=== PATIENT | female | born 1980 | race Caucasian/White ===

== ENCOUNTER 2019-06-08 02:24 | Emergency (ER) | payer SELFPAY ==
[2019-06-08 03:11] LABS: ABSOLUTE BASOPHILS # (AUTO) 0.1 10^3/uL (0.0-0.2); ABSOLUTE EOSINOPHILS # (AUTO) 0.1 10^3/uL (0.0-0.6); ABSOLUTE MONOCYTES (AUTO) 0.7 10^3/uL (0.1-1.4); ABSOLUTE NEUT (AUTO) 8.5 10^3/uL (1.7-8.2); BASOPHILS % (AUTO) 0.5 % (0-2); EOSINOPHILS % (AUTO) 0.8 % (0-6); HEMATOCRIT 39.8 % (36.0-47.0); HEMOGLOBIN 13.3 g/dL (12.0-15.5); LYMPHOCYTES % (AUTO) 17.7 % (13-45); MEAN CORPUSCULAR HEMOGLOBIN 29.6 pg (27.0-33.4); MEAN CORPUSCULAR HGB CONC 33.5 g/dL (32.0-36.0); MEAN CORPUSCULAR VOLUME 88 fl (80-97); MONOCYTES % (AUTO) 6.4 % (3-13); PLATELET COUNT 301 10^3/uL (150-450); RED BLOOD COUNT 4.51 10^6/uL (3.72-5.28); RED CELL DISTRIBUTION WIDTH 14.9 % (11.5-14.0); SEGMENTED NEUTROPHILS % (AUTO) 74.6 % (42-78); TOTAL CELLS COUNTED % (AUTO) 100 %; WHITE BLOOD COUNT 11.4 10^3/uL (4.0-10.5)
[2019-06-08 03:13] LABS: APPEARANCE,URINE SLIGHTLY-CLOUDY; BILIRUBIN,URINE NEGATIVE (NEGATIVE); COLOR,URINE YELLOW; GLUCOSE, URINE NEGATIVE (NEGATIVE); KETONES,URINE 80 mg/dL (NEGATIVE); LEUKOCYTE ESTERASE,URINE NEGATIVE (NEGATIVE); NITRITE,URINE NEGATIVE (NEGATIVE); PROTEIN,URINE NEGATIVE (NEGATIVE); URINE SPECIFIC GRAVITY 1.013; UROBILINOGEN,URINE NEGATIVE mg/dL (<2.0)
[2019-06-08 03:27] LABS: ALBUMIN 4.1 g/dL (3.5-5.0); ALKALINE PHOSPHATASE 54 U/L (38-126); ANION GAP 9 (5-19); ASPARTATE AMINO TRANSFERASE 23 U/L (14-36); BLOOD UREA NITROGEN 8 mg/dL (7-20); CALCIUM 9.6 mg/dL (8.4-10.2); CARBON DIOXIDE 27 mmol/L (22-30); CHLORIDE 102 mmol/L (98-107); GLUCOSE 107 mg/dL (75-110); POTASSIUM 4.1 mmol/L (3.6-5.0); TOTAL PROTEIN 7.6 g/dL (6.3-8.2)
--- NOTE | 2019-06-08 05:58 | ER Document Report ---
ED General - General Chief Complaint: Abdominal Pain Stated Complaint: UPPER ABDOMINAL PAIN Time Seen by Provider: 06/08/19 05:57 Primary Care Provider: MARYANA GALICIA MD [Primary Care Provider] - Follow up as needed Mode of Arrival: Ambulatory Information source: Patient Notes: Patient is a 38-year-old female presenting to the emergency department chief complaint of abdominal pain. Patient states that the pain is epigastric in location and achy and burning in nature. Patient states it started about 2 PM on Friday and then has been unrelenting until 1 AM she decided she could not tolerate it anymore and is here for evaluation and treatment. Patient denies t ravel history trauma history sick contacts bad food exposure. Patient has no prior medical history of acid reflux or gastrointestinal issues. TRAVEL OUTSIDE OF THE [place] IN LAST 30 DAYS: No - HPI Onset: Last week Onset/Duration: Gradual, Persistent Quality of pain: Achy, Burning Severity: Moderate Pain Level: 3 Associated symptoms: None Exacerbated by: Food Relieved by: Denies Similar symptoms previously: No Recently seen / treated by doctor: No - Related Data Allergies/Adverse Reactions: No Known Allergies Allergy (Unverified 06/08/19 02:38) Past Medical History - General Information source: Patient, Relative Last Menstrual Period: Irregular periods secondary to PCOS - Social History Smoking Status: Never Smoker Frequency of alcohol use: None Drug Abuse: None Lives with: Spouse/Significant other Family History: Reviewed & Not Pertinent Patient has suicidal ideation: No Patient has homicidal ideation: No - Medical History Medical History: Negative GI Medical History: Reports: Hx Gastroesophageal Reflux Disease Surgical Hx: Negative Review of Systems - Review of Systems Notes: REVIEW OF SYSTEMS: CONSTITUTIONAL : Denies fever, chills, or sweats. Denies recent illness. EENT: Denies eye, ear, throat, or mouth pain or symptoms. Denies nasal or sinus congestion. CARDIOVASCULAR: Denies chest pain. RESPIRATORY: Denies cough, cold, or chest congestion. Denies shortness of breath, difficulty breathing, or wheezing. GASTROINTESTINAL: Per HPI GENITOURINARY: Denies difficulty urinating, painful urination, burning, frequency, or blood in urine. MUSCULOSKELETAL: Denies neck or back pain or joint pain or swelling. SKIN: Denies rash or skin lesions. HEMATOLOGIC : Denies easy bruising or bleeding. NEUROLOGICAL: Denies altered mental status or loss of consciousness. Denies headache. Denies weakness or paralysis or loss of use of either side. Denies problems with gait or speech. Denies sensory or motor loss. PSYCHIATRIC: Denies suicidal or homicidal ideations 10 Systems are negative unless otherwise specified above Physical Exam - Vital signs Vitals: Temp Pulse Resp BP Pulse Ox 97.5 F 78 17 154/83 H 97 06/08/19 02:32 06/08/19 02:32 06/08/19 02:32 06/08/19 02:32 06/08/19 02:32 - Notes Notes: PHYSICAL EXAMINATION: GENERAL: Well-appearing, well-nourished and in no acute distress. HEAD: Atraumatic, normocephalic. EYES: Pupils equal round and reactive to light, extraocular movements intact, sclera anicteric, conjunctiva are normal. ENT: nares patent, oropharynx clear without exudates. Moist mucous membranes. NECK: Normal range of motion, supple without lymphadenopathy, no appreciable JVD LUNGS: Lungs clear to auscultation bilaterally and equal. No wheezes rales or rhonchi. HEART: Regular rate and rhythm without murmurs ABDOMEN: Morbidly obese, bowel sounds are present, no McBurney point tenderness no Tim sign no rebound no guarding tenderness is in the epigastrium EXTREMITIES: Active full range of motion, no pitting or edema. No cyanosis. 2+ pulses x4 NEUROLOGICAL: No focal neurological deficits. Moves all extremities spontaneously and on command. SKIN: Warm, Dry, and intact. Normal turgor, no rashes or lesions noted. Course - Re-evaluation Re-evalutation: 06/08/19 06:15 Laboratory results have been reviewed there is no significant finding however there is blood in the urine and hCG was not initially evaluated. This will be accomplished at this time patient will be given a GI cocktail and will be reassessed. 06/08/19 07:22 On reevaluation the patient is continuing to rest comfortably in hospital bed she states that the GI cocktail helped for a few minutes. I do not feel that radiologic tests are indicated at this time recommendation is to follow-up with gastroenterology. Patient will be started on pepcid for the next several days and recommend also following up with her primary care provider. 06/08/19 07:28 - Vital Signs Vital signs: Temp Pulse Resp BP Pulse Ox 97.5 F 78 16 171/83 H 100 06/08/19 02:32 06/08/19 02:32 06/08/19 07:00 06/08/19 07:00 06/08/19 07:00 - Laboratory Result Diagrams: 06/08/19 02:35 06/08/19 02:35 Laboratory results interpreted by me: 06/08/19 06/08/19 02:35 02:35 WBC 11.4 H RDW 14.9 H Absolute Neuts (auto) 8.5 H Urine Ketones 80 H Urine Blood MODERATE H Discharge - Discharge Clinical Impression: GERD (gastroesophageal reflux disease) Qualifiers: Esophagitis presence: esophagitis presence not specified Qualified Code(s): K21.9 - Gastro-esophageal reflux disease without esophagitis Condition: Stable Disposition: HOME, SELF-CARE Instructions: Abdominal Pain ([facility]) Additional Instructions: Recommend following up with gastroenterology and your primary care provider. Recommend the brat diet for the next several days. Take medications as prescribed. Prescriptions: Famotidine [Pepcid] 20 mg PO BID #30 tablet Referrals: MARYANA GALICIA MD [Primary Care Provider] - Follow up as needed JACQUELYN REINA MD [ACTIVE STAFF] - Follow up as needed
[2019-06-08] MEDS ORDERED: MAG HYDROX/AL HYDROX/SIMETH SUSP 30 ML UDCUP PO ONE (06:11)
[2019-06-08] MEDS ORDERED: METOCLOPRAMIDE HCL ORAL SOLN 10 MG/10 ML UDCUP PO ONE (06:11)
[2019-06-08] MEDS ORDERED: LIDOCAINE 2% VISCOUS SOLN 15 ML UDCUP PO ONE (06:11)
[2019-06-08 08:12] VITALS: BP 150/85
== END 2019-06-08 08:12 | disposition home or self-care (01) ==
LOC: ER 02:24
DX: K21.9 Gastro-esophageal reflux disease without esophagitis (principal); R10.10 Upper abdominal pain, unspecified
CPT/HCPCS: 99284; 36415; 83690; 85025; 81025; 80053; 81001; J3490

== ENCOUNTER 2019-06-09 06:09 | Observation (INO) | payer SELFPAY ==
[2019-06-09] MEDS ORDERED: NORMAL SALINE 1000 ML 1,000 ML IV ONE (08:30)
--- NOTE | 2019-06-09 08:30 | ER Document Report ---
ED General - General Chief Complaint: Abdominal Pain Stated Complaint: ABDOMINAL PAIN Time Seen by Provider: 06/09/19 08:21 Primary Care Provider: MARYANA GALICIA MD [Primary Care Provider] - Follow up as needed TRAVEL OUTSIDE OF THE [place] IN LAST 30 DAYS: No - HPI Notes: 38-year-old female to the emergency department with complaints of epigastric and right upper quadrant abdominal pain that has been getting worse since Friday. She states that she was seen here and evaluated for the same yesterday. She states she was given a GI cocktail and Pepcid but she continues to do poorly. States that she took Pepcid this morning at 4 AM to try to help her with her pain but it did not. She states that she attempted to eat yesterdaysome bread, but that came back up. She states that she has had nausea and pain ever since. She denies any fevers or chills. She is never had surgery on her abdomen before. She states that the pain initially started after eating hashbrowns on Friday. - Related Data Allergies/Adverse Reactions: No Known Allergies Allergy (Unverified 06/08/19 02:38) Past Medical History - General Information source: Patient - Social History Smoking Status: Never Smoker Chew tobacco use (# tins/day): No Frequency of alcohol use: None Drug Abuse: None Lives with: Family Family History: Reviewed & Not Pertinent Patient has suicidal ideation: No Patient has homicidal ideation: No GI Medical History: Reports: Hx Gastroesophageal Reflux Disease Review of Systems - Review of Systems Constitutional: denies: Chills, Fever EENT: No symptoms reported Cardiovascular: denies: Chest pain, Palpitations, Heart racing, Syncope, Dizziness, Lightheaded Respiratory: denies: Cough, Short of breath Gastrointestinal: Abdominal pain, Nausea, Vomiting. denies: Diarrhea Genitourinary: No symptoms reported Female Genitourinary: No symptoms reported Musculoskeletal: No symptoms reported Skin: No symptoms reported Neurological/Psychological: No symptoms reported -: Yes All other systems reviewed and negative Physical Exam - Vital signs Vitals: Temp Pulse Resp BP Pulse Ox 98.6 F 73 19 157/87 H 98 06/09/19 06:20 06/09/19 06:20 06/09/19 06:20 06/09/19 06:20 06/09/19 06:20 Interpretation: Normal - General General appearance: Alert Notes: Laying on the left side and holding the right upper quadrant. Patient appears uncomfortable - HEENT Head: Normocephalic, Atraumatic Eyes: Normal Pupils: PERRL - Respiratory Respiratory status: No respiratory distress Chest status: Nontender Breath sounds: Normal. No: Rales, Rhonchi, Wheezing Chest palpation: Normal - Cardiovascular Rhythm: Regular Heart sounds: Normal auscultation Murmur: No - Abdominal Inspection: Morbidly Obese Distension: No distension Bowel sounds: Normal Tenderness: Tender, Tim's sign - There is tenderness to palpation to the epigastrium and to the right upper quadrant. Positive Tim sign. Patient is guarding in the right upper quadrant. Negative McBurney's point, negative pain in the left lower quadrant. Organomegaly: No organomegaly - Back Back: Normal, Nontender - Neurological Neuro grossly intact: Yes Cognition: Normal Orientation: AAOx4 [place] Coma Scale Eye Opening: Spontaneous [place] Coma Scale Verbal: Oriented [place] Coma Scale Motor: Obeys Commands [place] Coma Scale Total: 15 Speech: Normal Motor strength normal: LUE, RUE, LLE, RLE Sensory: Normal - Psychological Associated symptoms: Normal affect, Normal mood - Skin Skin Temperature: Warm Skin Moisture: Dry Skin Color: Normal Course - Re-evaluation Re-evalutation: 06/09/19 12:23 Discussed the patient with Dr. Louis, my ER attending. He agrees with plan to consult surgery and admit patient for possible acute cholecystitis given increasing leukocytosis from yesterday and gallbladder ultrasound that shows gallstones, thickened gallbladder wall, and cannot exclude acute cholecystitis. 06/09/19 13:[address] Walton about the patient. He agrees with plan for admission. Would like for me to give the patient some Zosyn. Impression: Acute cholecystitis, right upper quadrant abdominal pain. Patient to be admitted to the surgical his service for further management. - Vital Signs Vital signs: Temp Pulse Resp BP Pulse Ox 98.6 F 73 19 157/87 H 98 06/09/19 06:20 06/09/19 06:20 06/09/19 06:20 06/09/19 06:20 06/09/19 06:20 - Laboratory Result Diagrams: 06/09/19 09:58 06/09/19 09:58 Laboratory results interpreted by me: 06/09/19 06/09/19 06/09/19 09:58 09:58 12:08 WBC 15.7 H RDW 15.1 H Lymphocytes % (Manual) 5 L Monocytes % (Manual) 18 H Abs Neuts (Manual) 12.1 H Abs Monocytes (Manual) 2.8 H Sodium 136.5 L Total Bilirubin 1.4 H Urine Ketones 80 H Urine Blood MODERATE H - Diagnostic Test Radiology reviewed: Image reviewed, Reports reviewed Discharge - Discharge Clinical Impression: Acute cholecystitis, Right upper quadrant abdominal pain Condition: Stable Disposition: ADMITTED INPATIENT Admitting Provider: Surgicalist - Dr. Walton Unit Admitted: Surgical Floor Referrals: MARYANA GALICIA MD [Primary Care Provider] - Follow up as needed
[2019-06-09] MEDS ORDERED: GLYCOPYRROLATE 1 MG/5 ML VIAL ONE (08:41)
[2019-06-09] MEDS ORDERED: ROCURONIUM BROMIDE INJ 50 MG/5 ML VIAL IV ONE (08:41)
[2019-06-09] MEDS ORDERED: PHENYLEPHRINE HCL INJ/PF 10 MG/1 ML SDV ONE (08:41)
[2019-06-09] MEDS ORDERED: KETOROLAC TROMETHAMINE 60 MG/2 ML SDV ONE (08:41)
[2019-06-09] MEDS ORDERED: SUCCINYLCHOLINE CHLORIDE INJ 200 MG/10 ML VIAL ONE (08:41)
[2019-06-09] MEDS ORDERED: NEOSTIGMINE METHYLSULFATE 10 MG/10 ML VIAL ONE (08:41)
[2019-06-09] MEDS ORDERED: METOCLOPRAMIDE HCL INJ/PF 10 MG/2 ML SDV ONE (08:41)
[2019-06-09] MEDS ORDERED: DEXAMETHASONE SOD PHOSPHATE INJ 4 MG/1 ML VIAL ONE (08:41)
[2019-06-09] MEDS ORDERED: ONDANSETRON HCL INJ/PF 4 MG/2 ML SDV IV ONE ×2 (08:54→12:16)
[2019-06-09] MEDS ORDERED: KETOROLAC TROMETHAMINE INJ/PF 30 MG/1 ML SDV IV ONE (08:55)
[2019-06-09 10:36] LABS: ALBUMIN 4.1 g/dL (3.5-5.0); ALKALINE PHOSPHATASE 58 U/L (38-126); ANION GAP 13 (5-19); ASPARTATE AMINO TRANSFERASE 24 U/L (14-36); BILIRUBIN,DIRECT 0.3 mg/dL (0.0-0.4); BILIRUBIN,TOTAL 1.4 mg/dL (0.2-1.3); BLOOD UREA NITROGEN 10 mg/dL (7-20); CALCIUM 8.9 mg/dL (8.4-10.2); CARBON DIOXIDE 26 mmol/L (22-30); CHLORIDE 98 mmol/L (98-107); GLUCOSE 104 mg/dL (75-110); POTASSIUM 3.9 mmol/L (3.6-5.0)
[2019-06-09 10:41] LABS: TOTAL PROTEIN 7.9 g/dL (6.3-8.2)
[2019-06-09 10:47] LABS: HEMATOCRIT 38.3 % (36.0-47.0); HEMOGLOBIN 13.2 g/dL (12.0-15.5); MEAN CORPUSCULAR HEMOGLOBIN 30.2 pg (27.0-33.4); MEAN CORPUSCULAR HGB CONC 34.5 g/dL (32.0-36.0); MEAN CORPUSCULAR VOLUME 88 fl (80-97); PLATELET COUNT 265 10^3/uL (150-450); RED BLOOD COUNT 4.37 10^6/uL (3.72-5.28); RED CELL DISTRIBUTION WIDTH 15.1 % (11.5-14.0); WHITE BLOOD COUNT 15.7 10^3/uL (4.0-10.5)
[2019-06-09 11:04] LABS: ABSOLUTE LYMPHOCYTES# (MANUAL) 0.8 10^3/uL (0.5-4.7); ABSOLUTE MONOCYTES # (MANUAL) 2.8 10^3/uL (0.1-1.4); BASOPHILS % (MANUAL) 0 % (0-2); EOSINOPHILS % (MANUAL) 0 % (0-6); LYMPHOCYTES % (MANUAL) 5 % (13-45); MONOCYTES % (MANUAL) 18 % (3-13); SEGMENTED NEUTROPHILS % (MAN) 77 % (42-78); TOTAL CELLS COUNTED 100
[2019-06-09 11:05] LABS: ANISOCYTOSIS SLIGHT; PLATELET COMMENT ADEQUATE
--- NOTE | 2019-06-09 11:37 | RADIOLOGY REPORT (SQ) ---
EXAM DESCRIPTION: U/S ABDOMEN LIMITED W/O DOP COMPLETED DATE/TIME: 06/09/2019 10:50 am REASON FOR STUDY: RUQ abd pain, eval GB COMPARISON: None. TECHNIQUE: Dynamic and static grayscale images acquired of the abdomen and recorded on PACS. Virao bella selected color Doppler and spectral images recorded. LIMITATIONS: None. FINDINGS: PANCREAS: No masses. Visualized pancreatic duct normal caliber. LIVER: The liver is echogenic consistent with fatty infiltration. There is hepatomegaly. The liver measures 22.7 cm in cranial caudal dimensions. LIVER VASCULATURE: Normal directional flow of the main portal vein and hepatic veins. GALLBLADDER: Gallbladder wall is thickened measured 5 mm. There are stones and sludge. There is rin g down artifact demonstrated consistent with adenomyomatosis. ULTRASOUND-DETECTED TIM'S SIGN: Positive. INTRAHEPATIC DUCTS AND COMMON DUCT: The common bile duct is dilated measured 7 mm. INFERIOR VENA CAVA: Normal flow. AORTA: No aneurysm. RIGHT KIDNEY: The right kidney measures 10.7 cm in length. No hydronephrosis. There is prominence of the renal pelvis most likely extrarenal pelvis. PERITONEAL AND RIGHT PLEURAL SPACE: No ascites or effusions. OTHER: No other significant findings. IMPRESSION: Gallstones along with thickened gallbladder wall and gallbladder sludge. Positive sonog raphic Tim's sign. There is ring down artifact suggesting adenomyomatosis. Acute cholecystitis c annot be excluded. Hepatomegaly with fatty infiltration of the liver. TECHNICAL DOCUMENTATION: JOB ID: [id number] 2010 [employer]- All Rights Reserved Reading location - IP/workstation name: [email or web address]
[2019-06-09] MEDS ORDERED: MORPHINE SULFATE 10 MG/ML INJ IV ONE (12:16)
[2019-06-09 12:24] LABS: APPEARANCE,URINE CLEAR; BILIRUBIN,URINE NEGATIVE (NEGATIVE); COLOR,URINE YELLOW; GLUCOSE, URINE NEGATIVE (NEGATIVE); KETONES,URINE 80 mg/dL (NEGATIVE); LEUKOCYTE ESTERASE,URINE NEGATIVE (NEGATIVE); NITRITE,URINE NEGATIVE (NEGATIVE); PROTEIN,URINE NEGATIVE (NEGATIVE); URINE SPECIFIC GRAVITY 1.012; UROBILINOGEN,URINE NEGATIVE mg/dL (<2.0)
[2019-06-09] MEDS ORDERED: PIPERACILLIN/TAZOBACTAM 3.375 GM VIAL IV ONE (13:05)
[2019-06-09] MEDS ORDERED: MORPHINE SULFATE 10 MG/ML INJ IV PRN (13:55)
[2019-06-09] MEDS ORDERED: ONDANSETRON HCL INJ/PF 4 MG/2 ML SDV IV PRN (13:55)
[2019-06-09] MEDS ORDERED: DEXTROSE 40% GEL 15 GM TUBE PO PRN ×2 (13:55)
[2019-06-09] MEDS ORDERED: GLUCAGON,HUMAN RECOMB 1 MG INJ SUBCUT PRN (13:55)
[2019-06-09] MEDS ORDERED: DEXTROSE 50%-WATER 25 GM/50 ML DISP.SYRIN IV PRN ×2 (13:55)
--- NOTE | 2019-06-09 14:12 | PDOC H&P ---
History of Present Illness Admission Date/PCP: 06/09/19 13:34 MARYANA GALICIA MD Patient complains of: Right upper quadrant pain, nausea, vomiting. History of Present Illness: MYRNA JUNIOR is a 38 year old female with a 4-day history of right upper quadrant pain. Her pain is sharp and stabbing. It has worsened over the last 48 to 72 hours. The patient reports that her pain is 9 out of 10 at this time. Nothing makes it worse, or better. She has associated nausea and vomiting with everything that she tries to eat or drink, including water. She has not been able to hold anything down. Her pain does not radiate. She denies chest pain, shortness of breath, fevers, chills, orthostasis, dizziness, blurry vision, headache, melena, hematochezia, or hematemesis. Past Medical History Past Medical History: morbid obesity GI Medical History: Reports: Gastroesophageal Reflux Disease Past Surgical History Past Surgical History: Reports: Other - wisdom tooth extraction Social History Lives with: Family Smoking Status: Never Smoker Electronic Cigarette use?: No Frequency of Alcohol Use: None Hx Recreational Drug Use: No Hx Prescription Drug Abuse: No Family History Family History: Reviewed & Not Pertinent Parental Family History Reviewed: Yes Children Family History Reviewed: Yes Sibling(s) Family History Reviewed.: Yes Medication/Allergy Home Medications: Famotidine [Pepcid] 20 mg PO BID #30 tablet 06/08/19 Allergies/Adverse Reactions: No Known Allergies Allergy (Unverified 06/08/19 02:38) Review of Systems Constitutional: ABSENT: anorexia, chills, fatigue, fever(s), headache(s), weakness Eyes: ABSENT: visual disturbances Ears: ABSENT: hearing changes Nose, Mouth, and Throat: ABSENT: mouth pain, sore throat Cardiovascular: ABSENT: chest pain Respiratory: ABSENT: cough Gastrointestinal: PRESENT: abdominal pain, nausea, vomiting. ABSENT: dysphagia, hematemesis, hematochezia, melena Musculoskeletal: ABSENT: back pain Integumentary: ABSENT: pruritus, rash Neurological: ABSENT: confusion, convulsions, dizziness, frequent falls, weakness Psychiatric: ABSENT: anxiety, depression Endocrine: ABSENT: cold intolerance, heat intolerance Hematologic/Lymphatic: ABSENT: easy bleeding, easy bruising Physical Exam Vital Signs: Temp Pulse Resp BP Pulse Ox 98.6 F 73 19 157/87 H 98 06/09/19 06:20 06/09/19 06:20 06/09/19 06:20 06/09/19 06:20 06/09/19 06:20 Intake & Output 06/08/19 06/09/19 06/10/19 06:59 06:59 06:59 Intake Total 1000 Balance 1000 Weight 176.901 kg General appearance: PRESENT: mild distress Head exam: PRESENT: atraumatic, normocephalic Eye exam: PRESENT: EOMI, PERRLA. ABSENT: scleral icterus Mouth exam: PRESENT: moist, neck supple Neck exam: ABSENT: meningismus, tenderness, thyromegaly, tracheal deviation Respiratory exam: PRESENT: unlabored. ABSENT: chest wall tenderness, tachypnea, wheezes Cardiovascular exam: ABSENT: tachycardia Pulses: PRESENT: normal radial pulses Vascular exam: PRESENT: normal capillary refill GI/Abdominal exam: PRESENT: Tim's sign, tenderness - RUQ, other - morbidly obese. ABSENT: distended, firm, rigid Extremities exam: ABSENT: clubbing Neurological exam: PRESENT: alert, awake, oriented to person, oriented to place, oriented to time, oriented to situation, CN II-XII grossly intact. ABSENT: motor sensory deficit Psychiatric exam: ABSENT: agitated, anxious Focused psych exam: ABSENT: delusional Skin exam: ABSENT: cyanosis Results Laboratory Results: 06/09/19 09:58 06/09/19 09:58 06/09/19 06/09/19 06/09/19 09:58 09:58 12:08 WBC 15.7 H RBC 4.37 Hgb 13.2 Hct 38.3 MCV 88 MCH 30.2 MCHC 34.5 RDW 15.1 H Plt Count 265 Seg Neutrophils % Not Reportable Sodium 136.5 L Potassium 3.9 Chloride 98 Carbon Dioxide 26 Anion Gap 13 BUN 10 Creatinine 0.56 Est GFR ( Amer) > 60 Glucose 104 Calcium 8.9 Total Bilirubin 1.4 H AST 24 Alkaline Phosphatase 58 Total Protein 7.9 Albumin 4.1 Lipase 45.9 Urine Color YELLOW Urine Appearance CLEAR Urine pH 6.0 Ur Specific [place] 1.012 Urine Protein NEGATIVE Urine Glucose (UA) NEGATIVE Urine Ketones 80 H Urine Blood MODERATE H Urine Nitrite NEGATIVE Ur Leukocyte Esterase NEGATIVE Urine WBC (Auto) 1 Urine RBC (Auto) 5 Impressions: Abdomen Ultrasound 06/09/19 08:54 IMPRESSION: Gallstones along with thickened gallbladder wall and gallbladder sludge. Positive sonographic Tim's sign. There is ring down artifact suggesting adenomyomatosis. Acute cholecystitis cannot be excluded. Hepatomegaly with fatty infiltration of the liver. Assessment & Plan - Diagnosis (1) Acute cholecystitis Is this a current diagnosis for this admission?: Yes - Plan Summary Plan Summary: This is a 38-year-old morbidly obese female with symptoms and lab work consistent with acute cholecystitis. I have offered her cholecystectomy as treatment. Plan for laparoscopic versus open cholecystectomy in the near future. Risks/benefits discussed, informed consent obtained, and all questions answered.
[2019-06-09] MEDS: KETOROLAC TROMETHAMINE INJ/PF 30 MG/1 ML SDV IV SCH ×2 (15:04→23:07)
[2019-06-09] MEDS: NORMAL SALINE 1000 ML 1,000 ML IV PRN ×2 (15:08→23:08)
[2019-06-09] MEDS ORDERED: MIDAZOLAM 2 MG/2 ML INJ ONE (18:53)
[2019-06-09] MEDS ORDERED: FENTANYL CITRATE INJ/PF 100 MCG/2 ML AMPUL ONE (18:53)
[2019-06-09] MEDS ORDERED: PROPOFOL INJ 200 MG/20 ML VIAL IV ONE (18:53)
[2019-06-09] MEDS ORDERED: BUPIVACAINE HCL 0.25 % INJ/PF (2.5 MG/1 ML) 30 ML VIAL ONE (18:55)
[2019-06-09] MEDS ORDERED: HYDROCODONE/ACETAMINOPHEN 10-325 MG TABLET PO PRN (22:03)
[2019-06-09] MEDS: FAMOTIDINE INJ/PF 20 MG/2 ML SDV IV SCH (23:07)
[2019-06-09] MEDS: PIPERACILLIN SODIUM/TAZOBACTAM 3.375 GM in NORMAL SALINE 100 ML IV SCH (23:07)
[2019-06-10] MEDS: KETOROLAC TROMETHAMINE INJ/PF 30 MG/1 ML SDV IV SCH (05:46)
[2019-06-10] MEDS: PIPERACILLIN SODIUM/TAZOBACTAM 3.375 GM in NORMAL SALINE 100 ML IV SCH ×2 (05:46→08:51)
[2019-06-10 06:04] LABS: ABSOLUTE LYMPHOCYTES (AUTO) 0.7 10^3/uL (0.5-4.7); ABSOLUTE MONOCYTES (AUTO) 0.4 10^3/uL (0.1-1.4); ABSOLUTE NEUT (AUTO) 11.1 10^3/uL (1.7-8.2); BASOPHILS % (AUTO) 0.1 % (0-2); HEMOGLOBIN 11.8 g/dL (12.0-15.5); LYMPHOCYTES % (AUTO) 5.8 % (13-45); MEAN CORPUSCULAR HEMOGLOBIN 29.8 pg (27.0-33.4); MEAN CORPUSCULAR HGB CONC 33.6 g/dL (32.0-36.0); MEAN CORPUSCULAR VOLUME 89 fl (80-97); MONOCYTES % (AUTO) 3.5 % (3-13); PLATELET COUNT 221 10^3/uL (150-450); RED BLOOD COUNT 3.94 10^6/uL (3.72-5.28); RED CELL DISTRIBUTION WIDTH 15.2 % (11.5-14.0); SEGMENTED NEUTROPHILS % (AUTO) 90.6 % (42-78); TOTAL CELLS COUNTED % (AUTO) 100 %; WHITE BLOOD COUNT 12.3 10^3/uL (4.0-10.5)
[2019-06-10 06:23] LABS: ALBUMIN 3.3 g/dL (3.5-5.0); ALKALINE PHOSPHATASE 46 U/L (38-126); ANION GAP 10 (5-19); ASPARTATE AMINO TRANSFERASE 47 U/L (14-36); BILIRUBIN,DIRECT 0.3 mg/dL (0.0-0.4); BLOOD UREA NITROGEN 12 mg/dL (7-20); CALCIUM 7.8 mg/dL (8.4-10.2); CARBON DIOXIDE 21 mmol/L (22-30); CHLORIDE 106 mmol/L (98-107); GLUCOSE 140 mg/dL (75-110); TOTAL PROTEIN 6.7 g/dL (6.3-8.2)
--- NOTE | 2019-06-10 06:29 | Operative Report ---
Nonrecallable Operative Report DATE OF SURGERY: 06/09/19 PREOPERATIVE DIAGNOSIS: Acute cholecystitis POSTOPERATIVE DIAGNOSIS: Acute, gangrenous, purulent cholecystitis OPERATION: Fenestrated subtotal cholecystectomy SURGEON: ARIADNA ROSENBAUM ANESTHESIA: GA TISSUE REMOVED OR ALTERED: Gallbladder COMPLICATIONS: Unable to access the cystic duct due to extreme amounts of inflammation. Subtotal cholecystectomy performed. ESTIMATED BLOOD LOSS: 200 cc PROCEDURE: Drains/implants: 15 Moldovan round Gary drain in the gallbladder fossa. Procedure in detail: After informed consent was obtained, the patient was brought to the operating room and laid in the supine position. The area of the abdomen was prepped and draped in a normal sterile fashion. An incision was created in the supraumbilical position using a 15 blade scalpel. Dissection was carried through the subcutaneous tissues using sharp and blunt dissection. The linea alba fascia was incised sharply, the abdomen was entered sharply. The balloon trocar was inserted, and pneumoperitoneum was achieved. A subxiphoid 5 mm port was then placed under direct laparoscopic visualization. 2 more 5 mm ports were placed in the right upper quadrant in similar fashion. Atraumatic graspers were placed through the 5 mm ports. The gallbladder was identified. It was tense, distended, and the wall appeared to be somewhat gangrenous. A cyst aspiration needle was used to aspirate 120 cc of thick, purulent material from the gallbladder lumen. Next, the gallbladder was retracted cephalad. There was a dense inflammatory reaction in and around the infundibulum. There was a large stone impacted in the neck of the gallbladder. Due to the dense inflammatory reaction, and the patient's body habitus, it was felt excessively risky to continue with dissection at the infundibulum of the gallbladder. A dome down technique was for this reason preferred. The ga llbladder was freed from the liver using a dome down technique, via electrocautery and blunt dissection. The dissection was carried down to the infundibulum of the gallbladder. This was done to a point that was still felt safe, and away from the common bile duct. Once the infundibulum was reached, the gallbladder was amputated and placed into an Endo Catch bag. I estimate approximately 90% of the gallbladder was removed. The remaining portion of the gallbladder was cauterized for hemostasis. The hilum was then inspected. It was found to be free of any leakage of blood or bile. A 15 Moldovan round Gary drain was then placed into the gallbladder fossa, and pulled out through the middle trocar site. Once this was completed, the remaining trochars were removed. Pneumoperitoneum was then relieved. The supraumbilical fascia was closed using 0 Vicryl suture in [id number] fashion x2. The overlying skin was closed using 4-0 Vicryl Rapide suture in subcuticular fashion. Dressings were placed, and the procedure was concluded. All sponge, instrument, and needle counts were correct x2. Condition: Stable.
[2019-06-10] MEDS: FAMOTIDINE INJ/PF 20 MG/2 ML SDV IV SCH (09:00)
[2019-06-10 13:03] VITALS: BP 108/54
--- NOTE | 2019-06-10 15:40 | PDOC DISCHARGE SUMMARY ---
General - Admit/Disc Date/PCP Admission Date/Primary Care Provider: 06/09/19 13:34 MARYANA GALICIA MD Discharge Date: 06/10/19 - Discharge Diagnosis Final Diagnosis: Acute cholecystitis - Assessment Summary: Underwent laparoscopic cholecystectomy on 06/09/[address] Walton. It was quite a difficult dissection at least 90% of the gallbladder was removed. A drain was left in place to be removed in the office possibly in about a week by Dr. Walton. - Additional Information Resuscitation Status: Full Code Discharge Diet: As Tolerated Discharge Activity: Activity As Tolerated Referrals: ARIADNA WALTON MD [ACTIVE STAFF] - 06/22/19 9:30 am Home Medications: Famotidine [Pepcid] 20 mg PO BID #30 tablet 06/08/19 History of Present Illiness History of Present Illness: MYRNA JUNIOR is a 38 year old female with 4 days of right upper quadrant pain with nausea and vomiting. Ultrasound of the gallbladder showed gallstones with sludge and thickened wall compatible with acute cholecystitis. Hospital Course Hospital Course: Patient underwent laparoscopic cholecystectomy by Dr. Walton on 06/09/2019. Twisted difficult dissection and gallbladder was removed about 90%. A drain was left in place. She is doing well the next day and discharged. The drain was left to be removed by Dr. Walton in the clinic in about a week if the drainage decreases. Patient instructed how to empty the and reactivate the drain. Patient given prescription for Toradol PRN for pain. Physical Exam Vital Signs: Temp Pulse Resp BP Pulse Ox 98.0 F 79 24 H 137/60 H 95 06/10/19 12:48 06/10/19 12:48 06/10/19 12:48 06/10/19 12:48 06/10/19 12:48 Intake & Output 06/09/19 06/10/19 06/11/19 06:59 06:59 06:59 Intake Total 7140 1350 Output Total 2845 Balance 4295 1350 Weight 176.901 kg 175 kg Exam: Tenderness in the right upper quadrant prior to surgery Results Laboratory Results: WBC 12.3 10^3/uL (4.0-10.5) H 06/10/19 05:39 RBC 3.94 10^6/uL (3.72-5.28) 06/10/19 05:39 Hgb 11.8 g/dL (12.0-15.5) L 06/10/19 05:39 Hct 35.0 % (36.0-47.0) L 06/10/19 05:39 MCV 89 fl (80-97) 06/10/19 05:39 MCH 29.8 pg (27.0-33.4) 06/10/19 05:39 MCHC 33.6 g/dL (32.0-36.0) 06/10/19 05:39 RDW 15.2 % (11.5-14.0) H 06/10/19 05:39 Plt Count 221 10^3/uL (150-450) 06/10/19 05:39 Lymph % (Auto) 5.8 % (13-45) L 06/10/19 05:39 [place] % (Auto) 3.5 % (3-13) 06/10/19 05:39 Eos % (Auto) 0.0 % (0-6) 06/10/19 05:39 Baso % (Auto) 0.1 % (0-2) 06/10/19 05:39 Absolute Neuts (auto) 11.1 10^3/uL (1.7-8.2) H 06/10/19 05:39 Absolute Lymphs (auto) 0.7 10^3/uL (0.5-4.7) 06/10/19 05:39 Absolute Monos (auto) 0.4 10^3/uL (0.1-1.4) 06/10/19 05:39 Absolute Eos (auto) 0.0 10^3/uL (0.0-0.6) 06/10/19 05:39 Absolute Basos (auto) 0.0 10^3/uL (0.0-0.2) 06/10/19 05:39 Total Counted 100 06/09/19 09:58 Seg Neutrophils % 90.6 % (42-78) H 06/10/19 05:39 Seg Neuts % (Manual) 77 % (42-78) 06/09/19 09:58 Lymphocytes % (Manual) 5 % (13-45) L 06/09/19 09:58 Monocytes % (Manual) 18 % (3-13) H 06/09/19 09:58 Eosinophils % (Manual) 0 % (0-6) 06/09/19 09:58 Basophils % (Manual) 0 % (0-2) 06/09/19 09:58 Abs Neuts (Manual) 12.1 10^3/uL (1.7-8.2) H 06/09/19 09:58 Abs Lymphs (Manual) 0.8 10^3/uL (0.5-4.7) 06/09/19 09:58 Abs Monocytes (Manual) 2.8 10^3/uL (0.1-1.4) H 06/09/19 09:58 Absolute Eos (Manual) 0.0 10^3/uL (0.0-0.6) 06/09/19 09:58 Abs Basophils (Manual) 0.0 10^3/uL (0.0-0.2) 06/09/19 09:58 Platelet Comment ADEQUATE 06/09/19 09:58 Anisocytosis SLIGHT 06/09/19 09:58 Sodium 137.4 mmol/L (137-145) 06/10/19 05:39 Potassium 4.0 mmol/L (3.6-5.0) 06/10/19 05:39 Chloride 106 mmol/L (98-107) 06/10/19 05:39 Carbon Dioxide 21 mmol/L (22-30) L 06/10/19 05:39 Anion Gap 10 (5-19) 06/10/19 05:39 BUN 12 mg/dL (7-20) 06/10/19 05:39 Creatinine 0.65 mg/dL (0.52-1.25) 06/10/19 05:39 Est GFR ( Amer) > 60 (>60) 06/10/19 05:39 Est GFR (MDRD) Non-Af > 60 (>60) 06/10/19 05:39 Glucose 140 mg/dL (75-110) H 06/10/19 05:39 Calcium 7.8 mg/dL (8.4-10.2) L 06/10/19 05:39 Total Bilirubin 1.0 mg/dL (0.2-1.3) 06/10/19 05:39 Direct Bilirubin 0.3 mg/dL (0.0-0.4) 06/10/19 05:39 Neonat Total Bilirubin Not Reportable 06/10/19 05:39 Neonat Direct Bilirubin Not Reportable 06/10/19 05:39 Neonat Indirect Bili Not Reportable 06/10/19 05:39 AST 47 U/L (14-36) H 06/10/19 05:39 ALT 39 U/L (<35) H 06/10/19 05:39 Alkaline Phosphatase 46 U/L (38-126) 06/10/19 05:39 Total Protein 6.7 g/dL (6.3-8.2) 06/10/19 05:39 Albumin 3.3 g/dL (3.5-5.0) L 06/10/19 05:39 Lipase 45.9 U/L (23-300) 06/09/19 09:58 Urine Color YELLOW 06/09/19 12:08 Urine Appearance CLEAR 06/09/19 12:08 Urine pH 6.0 (5.0-9.0) 06/09/19 12:08 Ur Specific [place] 1.012 06/09/19 12:08 Urine Protein NEGATIVE mg/dL (NEGATIVE) 06/09/19 12:08 Urine Glucose (UA) NEGATIVE mg/dL (NEGATIVE) 06/09/19 12:08 Urine Ketones 80 mg/dL (NEGATIVE) H 06/09/19 12:08 Urine Blood MODERATE (NEGATIVE) H 06/09/19 12:08 Urine Nitrite NEGATIVE (NEGATIVE) 06/09/19 12:08 Urine Bilirubin NEGATIVE (NEGATIVE) 06/09/19 12:08 Urine Urobilinogen NEGATIVE mg/dL (<2.0) 06/09/19 12:08 Ur Leukocyte Esterase NEGATIVE (NEGATIVE) 06/09/19 12:08 Urine WBC (Auto) 1 /HPF 06/09/19 12:08 Urine RBC (Auto) 5 /HPF 06/09/19 12:08 Urine Bacteria (Auto) 2+ /HPF 06/09/19 12:08 Squamous Epi Cells Auto 3 /HPF 06/09/19 12:08 Urine Mucus (Auto) RARE /LPF 06/09/19 12:08 Urine Ascorbic Acid NEGATIVE (NEGATIVE) 06/09/19 12:08 Impressions: Abdomen Ultrasound 06/09/19 08:54 IMPRESSION: Gallstones along with thickened gallbladder wall and gallbladder sludge. Positive sonographic Tim's sign. There is ring down artifact suggesting adenomyomatosis. Acute cholecystitis cannot be excluded. Hepatomegaly with fatty infiltration of the liver. Plan Health Concerns: Patient instructed to empty the drain and to keep the drain until seen in the clinic in about a week Plan of Treatment: Laparoscopic cholecystectomy Goals: For removal of drain for about a week or so. Time Spent: Less than 30 Minutes
== END 2019-06-10 14:16 | disposition home or self-care (01) ==
LOC: ER 06:09 → EH 13:34 → INTOOBSV 13:34 → 4S 15:48
PROVIDERS: ATTEND Surgery
DX: K81.2 Acute cholecystitis with chronic cholecystitis (principal); K21.9 Gastro-esophageal reflux disease without esophagitis; E66.01 Morbid (severe) obesity due to excess calories; Z79.899 Other long term (current) drug therapy
CPT/HCPCS: 96376; 99285; 96361; 96374; 96375; 36415 ×2; 83690; 85025 ×2; 80053 ×2; 81001; 88304 ×2; 76705; 00790; 47562; G0378 ×3; J2250; J3490 ×2; J1100; J1885 ×3; J3010; J2765; J2270; J2710; J2370; J0330; J2405; J7050 ×2; J7030; J2704; S0028 ×2; J2543 ×2; 790

== ENCOUNTER 2019-06-19 06:14 | Emergency (ER) | payer OTHER ==
[2019-06-19] MEDS ORDERED: NORMAL SALINE 1000 ML 1,000 ML IV ONE (07:10)
--- NOTE | 2019-06-19 07:13 | ER Document Report ---
ED GI/ - General Chief Complaint: Flank Pain Stated Complaint: RIGHT FLANK PAIN POST GALBLADDER SURGERY Time Seen by Provider: 06/19/19 06:55 Primary Care Provider: MARYANA GALICIA MD [Primary Care Provider] - Follow up as needed Mode of Arrival: Ambulatory Information source: Patient Notes: 38-year-old woman presents to the emergency department with history of lap aroscopic cholecystectomy, drain was left in place. She complains of pain in the right side of the abdomen and in the right flank area. States that the pain began to this morning. The tube had been draining about 20 to 30 cc twice a day, she notes that the fluid was clear however, today the fluid is serosanguineous. Denies fever, nausea vomiting or loss of appetite. Last meal was last evening at approximately last known bowel movement was. She is not allergic to any medications. TRAVEL OUTSIDE OF THE [place] IN LAST 30 DAYS: No - Related Data Allergies/Adverse Reactions: No Known Allergies Allergy (Unverified 06/08/19 02:38) Past Medical History - Social History Smoking Status: Never Smoker Frequency of alcohol use: None Drug Abuse: None Family History: Reviewed & Not Pertinent Patient has suicidal ideation: No Patient has homicidal ideation: No - Past Medical History Cardiac Medical History: Denies: Hx Congestive Heart Failure, Hx Heart Attack, Hx Hypertension Pulmonary Medical History: Reports: Hx Bronchitis Denies: Hx Asthma, Hx COPD, Hx Pneumonia, Hx Tuberculosis Neurological Medical History: Denies: Hx Seizures, Hx Parkinson's Disease Renal/ Medical History: Denies: Hx End Stage Renal Disease, Hx Kidney Stones GI Medical History: Denies: Hx Cirrhosis, Hx Gastroesophageal Reflux Disease, Hx Ulcer Musculoskeletal Medical History: Denies Hx Arthritis, Denies Hx Multiple Sclerosis Psychiatric Medical History: Reports: Hx Depression Denies: Hx Bipolar Disorder, Hx Schizophrenia Past Surgical History: Reports: Hx Cholecystectomy, Other - wisdom tooth extraction Review of Systems - Review of Systems Notes: Constitutional: Negative for fever. HENT: Negative for sore throat. Eyes: Negative for visual changes. Cardiovascular: Negative for chest pain. Respiratory: Negative for shortness of breath. Gastrointestinal: + Tenderness in the right upper quadrant Genitourinary: Negative for dysuria. Musculoskeletal: + Tenderness in the right oblique muscle Skin: Negative for rash. Neurological: Negative for headaches, weakness or numbness. 10 point ROS negative except as marked above and in HPI. Physical Exam - Vital signs Vitals: Temp Pulse Resp BP Pulse Ox 97.7 F 83 24 H 136/64 H 97 06/19/19 06:21 06/19/19 06:21 06/19/19 06:21 06/19/19 06:21 06/19/19 06:21 - Notes Notes: PHYSICAL EXAMINATION: Physical Exam: General: Well-nourished well-developed 38-year-old woman in no acute distress HEENT: NC/AT, pupils equal round and reactive to light, MM moist,nares clear, oropharynx clear, airway patent Neck: supple, no adenopathy, no masses. Good range of motion Lungs: clear, no wheezing, no rales no rhonchi CVS: Regular rate and rhythm no murmur gallop or rub Abdomen: Soft, active, nontender, no masses, no hepatosplenomegaly, right upper quadrant drain. Ext: No edema, clubbing or cyanosis. Neuro: Alert and responsive, moving all 4 extremities on command, cranial nerves intact, no focal findings Skin: Intact no open lesions, no rash PSYCH: Normal mood, normal affect. Course - Re-evaluation Re-evalutation: 06/19/19 10:[address] scan reveals no acute findings, WBC count is 10.7. Patient is in no distress and no increased drainage is noted. I have explained to the patient that this may be musculoskeletal pain related to her laparoscopic procedure and managing it with the pain medicine that she was given is the appropriate thing. Patient's is quite concerned and is questioning wh ether she needs to stay in the hospital. I have tried to reassure him that this present status will not require hospitalization or intervention by the surgeon. - Vital Signs Vital signs: Temp Pulse Resp BP Pulse Ox 97.7 F 83 24 H 136/64 H 97 06/19/19 06:21 06/19/19 06:21 06/19/19 06:21 06/19/19 06:21 06/19/19 06:21 - Laboratory Result Diagrams: 06/19/19 07:30 06/19/19 07:30 Laboratory results interpreted by me: 06/19/19 06/19/19 07:30 07:30 RDW 15.7 H Urine Blood SMALL H Discharge - Discharge Clinical Impression: Right flank pain, Status post cholecystectomy Condition: Good Disposition: HOME, SELF-CARE Additional Instructions: Please continue your usual medications. Please follow-up with your doctor as needed Please return to the emergency department if you develop fever or worsening sy mptoms. HOME CARE INSTRUCTIONS & INFORMATION: Thank you for choosing us for your medical needs. We hope you're satisfied with the care you received. After you leave, you must properly care for your problem and, at the same time, observe its progress. Any condition can change. Some illnesses can change rapidly over hours or days. If your condition worsens, return to the Emergency Department or see your physician promptly. ABOUT YOUR X-RAYS AND EKG'S: If you had an EKG or X-rays taken, they have been read by the Emergency Physician. The X-rays and EKG's will also be read by a Radiologist or Arts Administrator Or Manager within 24 hours. If discrepancies are noted, you will be notified by telephone. Please be certain the ED has a correct telephone number & address where you can be reached. Also, realize that some fractures or abnormalities do not show up on initial X-rays. If your symptoms continue, see your physician. ABOUT YOUR LABORATORY TEST: If you had laboratory tests, the results have been reviewed by the Emergency Physician. Some test results (for example cultures) may not be available for several days. You will be contacted if any test result shows you need additional treatment. Please be certain the ED has a correct telephone number and address where you can be reached. ABOUT YOUR MEDICATIONS: You will receive instructions on how to take your medicine on the prescription label you receive. Additional information may be provided by the Pharmacy. If you have questions afterwards, call the ED for clarification or further instructions. Some prescribed medications may cause drowsiness. Do not perform tasks such as driving a car or operating machinery without consulting your Pharmacist. If you feel you need a refill of pain medication, your condition will need re-evaluation. Please do not call for a refill of any medication. ABOUT YOUR SIGNATURE: Signature of this document acknowledges to followin. Understanding that you received emergency treatment and that you may be released before al medical problems are known or treated. Please be certain the ED has a correct phone number & address where you can be reached. 2. Acknowledgement that you will arrange for follow-up care as recommended. 3. Authorization for the Emergency Physician to provide information to your follow-up Physician in order to maximize your care. AT ANY TIME, IF YOUR SYMPTOMS CHANGE SIGNIFICANTLY OR WORSEN OR YOU DEVELOP NEW SYMPTOMS, RETURN TO THE EMERGENCY DEPARTMENT IMMEDIATELY FOR RE-EVALUATION. OUR GOAL IS TO PROVIDE EXCELLENT MEDICAL CARE! WE HOPE THAT WE HAVE MET YOUR EXPECTATIONS DURING YOUR EMERGENCY DEPARTMENT VISIT AND THAT YOU FEEL YOU HAVE RECEIVED EXCELLENT CARE! Referrals: MARYANA GALICIA MD [Primary Care Provider] - Follow up as needed
[2019-06-19 07:52] LABS: APPEARANCE,URINE SLIGHTLY-CLOUDY; BILIRUBIN,URINE NEGATIVE (NEGATIVE); COLOR,URINE YELLOW; GLUCOSE, URINE NEGATIVE (NEGATIVE); KETONES,URINE NEGATIVE (NEGATIVE); LEUKOCYTE ESTERASE,URINE NEGATIVE (NEGATIVE); NITRITE,URINE NEGATIVE (NEGATIVE); PROTEIN,URINE NEGATIVE (NEGATIVE); URINE SPECIFIC GRAVITY 1.016; UROBILINOGEN,URINE NEGATIVE mg/dL (<2.0)
[2019-06-19 08:05] LABS: ABSOLUTE BASOPHILS # (AUTO) 0.1 10^3/uL (0.0-0.2); ABSOLUTE EOSINOPHILS # (AUTO) 0.2 10^3/uL (0.0-0.6); ABSOLUTE LYMPHOCYTES (AUTO) 2.5 10^3/uL (0.5-4.7); ABSOLUTE MONOCYTES (AUTO) 0.7 10^3/uL (0.1-1.4); ABSOLUTE NEUT (AUTO) 6.5 10^3/uL (1.7-8.2); BASOPHILS % (AUTO) 0.9 % (0-2); EOSINOPHILS % (AUTO) 1.6 % (0-6); HEMATOCRIT 38.4 % (36.0-47.0); HEMOGLOBIN 12.6 g/dL (12.0-15.5); MEAN CORPUSCULAR HEMOGLOBIN 29.5 pg (27.0-33.4); MEAN CORPUSCULAR HGB CONC 32.9 g/dL (32.0-36.0); MEAN CORPUSCULAR VOLUME 90 fl (80-97); MONOCYTES % (AUTO) 7.3 % (3-13); PLATELET COUNT 344 10^3/uL (150-450); RED BLOOD COUNT 4.28 10^6/uL (3.72-5.28); RED CELL DISTRIBUTION WIDTH 15.7 % (11.5-14.0); SEGMENTED NEUTROPHILS % (AUTO) 65.2 % (42-78); TOTAL CELLS COUNTED % (AUTO) 100 %
[2019-06-19 08:15] LABS: ALKALINE PHOSPHATASE 44 U/L (38-126); ANION GAP 9 (5-19); ASPARTATE AMINO TRANSFERASE 30 U/L (14-36); BILIRUBIN,DIRECT 0.1 mg/dL (0.0-0.4); BILIRUBIN,TOTAL 0.9 mg/dL (0.2-1.3); BLOOD UREA NITROGEN 14 mg/dL (7-20); CALCIUM 9.1 mg/dL (8.4-10.2); CARBON DIOXIDE 28 mmol/L (22-30); CHLORIDE 103 mmol/L (98-107); GLUCOSE 91 mg/dL (75-110); POTASSIUM 4.5 mmol/L (3.6-5.0); TOTAL PROTEIN 7.5 g/dL (6.3-8.2)
--- NOTE | 2019-06-19 09:15 | RADIOLOGY REPORT (SQ) ---
EXAM DESCRIPTION: CT ABD/PELVIS WITH IV ONLY COMPLETED DATE/TIME: 06/19/2019 8:41 am REASON FOR STUDY: ruq tenderness COMPARISON: None. TECHNIQUE: CT scan of the abdomen and pelvis performed using helical scanning technique with dynamic intravenous contrast injection. No oral contrast. Images reviewed with lung, soft tissue, and bone windows. Reconstructed coronal and sagittal MPR images reviewed. Delayed images for evaluation of the urinary system also acquired. All images stored on PACS. All CT scanners at this facility use dose modulation, iterative reconstruction, and/or weight based d osing when appropriate to reduce radiation dose to as low as reasonably achievable (ALARA). [facility]: Dose Right [facility]: CareDose [facility]: Dose Right [facility]: Teradose 4D [facility]: Loctronix CONTRAST TYPE AND DOSE: contrast/concentration: Isovue 350.00 mg/ml; Total Contrast Delivered: 100.0 ml; Total Saline Delivered: 72.0 ml RENAL FUNCTION: None required. The patient is less than 50 years old. RADIATION DOSE: CT Rad equipment meets quality standard of care and radiation dose reduction techniq ues were employed. CTDIvol: 21.1 mGy. DLP: 2463 mGy-cm.. LIMITATIONS: None. FINDINGS: LOWER CHEST: No significant findings. No nodules or infiltrates. LIVER: Normal size. No masses. No dilated ducts. SPLEEN: Normal size. No focal lesions. PANCREAS: No masses. No significant calcifications. No adjacent inflammation or peripancreatic fluid collections. Pancreatic duct not dilated. GALLBLADDER: No identified stones by CT criteria. No inflammatory changes to suggest cholecystitis. ADRENAL GLANDS: No significant masses or asymmetry. RIGHT KIDNEY AND URETER: No solid masses. No significant calcifications. No hydronephrosis or hyd roureter. LEFT KIDNEY AND URETER: No solid masses. No significant calcifications. No hydronephrosis or hydr oureter. AORTA AND VESSELS: No aneurysm. No dissection. Renal arteries, SMA, celiac without stenosis. RETROPERITONEUM: No retroperitoneal adenopathy, hemorrhage or masses. BOWEL AND PERITONEAL CAVITY: No masses or inflammatory changes. No free fluid or peritoneal masses. Generalize diverticulosis. APPENDIX: Not visualized. PELVIS: No mass. No free fluid. Normal bladder. ABDOMINAL WALL: No masses. No hernias. BONES: No significant or acute findings. OTHER: Catheter is coiled in the right upper quadrant adjacent to the liver and extending into the ga llbladder fossa. IMPRESSION: Catheter coiled in the right upper quadrant adjacent to the liver and in the gallbladder fossa. No other significant finding. TECHNICAL DOCUMENTATION: JOB ID: [id number] Quality ID # [id number]: Final reports with documentation of one or more dose reduction techniques (e.g., Au tomated exposure control, adjustment of the mA and/or kV according to patient size, use of iterative reconstruction technique) 2010 [employer]- All Rights Reserved Reading location - IP/workstation name: [email or web address]
[2019-06-19 11:46] VITALS: BP 123/64
== END 2019-06-19 11:46 | disposition home or self-care (01) ==
LOC: ER 06:14
DX: R10.9 Unspecified abdominal pain (principal); Z90.49 Acquired absence of other specified parts of digestive tract
CPT/HCPCS: 99284; 96360; 36415; 83690; 85025; 80053; 81001; 74177; J7030